=== PATIENT | male | born 1995 | race Caucasian/White ===

== ENCOUNTER 2019-11-30 17:21 | Emergency (ER) | payer OTHER ==
[~2019-11-30] VITALS: Ht 190.5 cm; Wt 81.8 kg
[2019-11-30 17:45] VITALS: BP 159/77
--- NOTE | 2019-11-30 18:06 | RAD ---
3 views right hand HISTORY: Status post laceration AP lateral oblique views The visualized osseous structures appear normal. There is no radiopaque foreign body. IMPRESSION: No acute findings. Electronically signed by: Betito Abreu III, MD (11/30/2019 6:02 PM) [facility]
--- NOTE | 2019-11-30 19:05 | PHYS DOC ---
Past Medical History Past Medical History: No Pertinent History Past Surgical History: No Surgical History Smoking Status: Never Smoker Alcohol Use: Occasionally General Adult EDM: Chief Complaint: LACERATION/AVULSION HPI: HPI: Patient is a 23 year old right-handed male patient who presents to the ED today with right thumb laceration, patient states he was at the [employer] shooting range doing target practice when the top part of the gun cut his right thumb. Review of Systems: Review of Systems: Constitutional: Denies fever or chills. [] Musculoskeletal: Denies back pain or joint pain. [] Integument: Reports right thumb laceration Neurologic: Denies headache, focal weakness or sensory changes. [] Psychiatric: Denies depression or anxiety. [] Heart Score: Risk Factors: Risk Factors: DM, Current or recent (<one month) smoker, HTN, HLP, family history of CAD, obesity. Risk Scores: Score 0 - 3: 2.5% MACE over next 6 weeks - Discharge Home Score 4 - 6: 20.3% MACE over next 6 weeks - Admit for Clinical Observation Score 7 - 10: 72.7% MACE over next 6 weeks - Early Invasive Strategies Physical Exam: PE: Constitutional: Well developed, well nourished, no acute distress, non-toxic appearance. [] Skin: Right thumb mid phalanx ventral aspect with a laceration approximately 2 cm long, there is obvious tendon involvement, patient able to flex and extend the finger with no difficulties. +2 right radial pulse. Cap refill less than 2 seconds the right thumb. Adequate radial sensation to the right thumb Extremities: No tenderness, no cyanosis, no clubbing, ROM intact, no edema. [] Neurologic: Alert and oriented X 3, normal motor function, normal sensory func tion, no focal deficits noted. [] Psychologic: Affect normal, judgement normal, mood normal. [] Current Patient Data: Vital Signs: Vital Signs Date Time Temp Pulse Resp B/P (MAP) Pulse Ox O2 Delivery O2 Flow Rate FiO2 11/30/19 17:45 98.7 79 20 159/77 (104) 98 Room Air 98.7 EKG: EKG: [] Radiology/Procedures: Radiology/Procedures: []PROCEDURE: HAND RIGHT 3V 3 views right hand HISTORY: Status post laceration AP lateral oblique views The visualized osseous structures appear normal. There is no radiopaque foreign body. IMPRESSION: No acute findings. Electronically signed by: Ayaka Abreu III, MD (11/30/2019 6:02 PM) [facility] DICTATED and SIGNED BY: AYAKA ABREU III, MD DATE: 11/30/19 180 Laceration/Wound Repair Wound Location: Right thumb Wound's Depth, Shape: [Horizontal Wound Length (cm): Approximately 2 cm Wound Explored: clean Irrigated w/ Saline (ccs): 500 Betadine Prep?: Yes Anesthesia: 1% of lidocaine Volume Anesthetic (ccs): Approximately 6 Wound Repaired With: Ethilon Suture Size/Type: 5.0/interrupted sutures Number of Sutures: 6 Progress : Wound was covered with nonstick dressing Course & Med Decision Making: Course & Med Decision Making Pertinent Labs and Imaging studies reviewed. (See chart for details) This is a 23-year-old male patient who presents to the ED today with right thumb laceration with obvious tendon tear. Right hand x-rays are negative for any acute findings, tetanus is up-to-date Consulted with a hand surgeon at -he requested we close the laceration, give patient antibiotics and he can follow-up with his clinic next week. Patient was given Zosyn IV in the ED. Follow-up information provided to patient. Discharged on cephalexin. Vika Disclaimer: Vika Disclaimer: This electronic medical record was generated, in whole or in part, using a voice recognition dictation system. Departure Departure Impression: Primary Impression: Finger laceration Qualified Codes: S61.111A - Laceration without foreign body of right thumb with damage to nail, initial encounter Additional Impression: Tendon tear Disposition: 01 HOME, SELF-CARE Condition: STABLE Referrals: NON,STAFF (PCP) Please follow up with DR. Ram at [facility]. His number is [phone] Patient Instructions: Fingertip Laceration Additional Instructions: You have right thumb laceration with tendon tear. Please follow-up with the provided hand surgeon at [facility] or you can call your own hand surgeon and set up a follow-up appointment. Keep the laceration site clean and dry. Take the prescribed antibiotics until completed. Apply Neosporin to the area twice a day. Monitor the area for any worsening condition include increased redness, warmth, yellow drainage from the area and return to the ED if they occur. Scripts Cephalexin (CEPHALEXIN) 500 Mg Tablet 1 TAB PO TID, #30 TAB Prov: NOEMY HOFF APRN 11/30/19 Justicifation of Admission Dx: Justifications for Admission: Justification of Admission Dx: N/A NOEMY HOFF APRN Nov 30, 2019 19:05
[2019-11-30] MEDS ORDERED: LIDOCAINE 1% Multi-Dose 20 ML VIAL. INJ ONE (19:30)
[2019-11-30] MEDS ORDERED: PIPERACILLIN/TAZOBACTAM 3.375 GM in IV NORMAL SALINE 50ML 50 ML IV ONE (21:00)
[2019-11-30] MEDS ORDERED: CEPH500T PO (21:14)
== END 2019-11-30 21:15 | disposition home or self-care (01) ==
LOC: ER 17:21
DX: S61.111A Laceration without foreign body of right thumb with damage to nail, initial encounter (principal); R20.2 Paresthesia of skin; W26.8XXA Contact with other sharp object(s), not elsewhere classified, initial encounter; Y93.89 Activity, other specified; Y92.89 Other specified places as the place of occurrence of the external cause; Y99.8 Other external cause status
CPT/HCPCS: 12001; 73130; 96365; 99284; J2543; J3490